=== PATIENT | female | born 1995 | race Caucasian/White ===

== ENCOUNTER 2018-04-23 00:06 | Emergency (ER) | payer OTHER ==
[~2018-04-23] VITALS: Ht 170.2 cm; Wt 63.5 kg
== END 2018-04-23 02:22 | disposition home or self-care (01) ==
LOC: ED 00:06
DX: S16.1XXA Strain of muscle, fascia and tendon at neck level, initial encounter (principal); S00.93XA Contusion of unspecified part of head, initial encounter; V29.9XXA Motorcycle rider (driver) (passenger) injured in unspecified traffic accident, initial encounter
CPT/HCPCS: 70450; 72125; 99284

== ENCOUNTER 2021-10-05 10:15 | Emergency (ER) | payer OTHER ==
[~2021-10-05] VITALS: Ht 170.2 cm; Wt 93.0 kg
[2021-10-05] MEDS ORDERED: SULFAMETHOXAZO1 EAC1 PO (10:46)
[2021-10-05] MEDS ORDERED: PYRIDIUM100 MG PO (10:47)
[2021-10-05] MEDS ORDERED: AMITRIPTYLINE H25 MG PO (12:37)
== END 2021-10-05 12:53 | disposition home or self-care (01) ==
LOC: ED 10:15
DX: N30.10 Interstitial cystitis (chronic) without hematuria (principal)
CPT/HCPCS: 76830; 76856; 81001; 84703; 99284-25

== ENCOUNTER 2021-11-20 20:11 | Emergency (ER) | payer OTHER ==
[~2021-11-20] VITALS: Ht 172.7 cm; Wt 97.0 kg
[~2021-11-20 20:11] MED LIST: AMITRIPTYLINE H25 MG PO; PYRIDIUM100 MG PO; SULFAMETHOXAZO1 EAC1 PO
[2021-11-20] MEDS ORDERED: MUPIROCIN22 GM TOP (20:31)
[2021-11-20] MEDS ORDERED: BACTRIM DS TAB1 EACH PO (20:31)
== END 2021-11-20 20:44 | disposition home or self-care (01) ==
LOC: ED 20:11
DX: T63.301A Toxic effect of unspecified spider venom, accidental (unintentional), initial encounter (principal); Z79.899 Other long term (current) drug therapy
CPT/HCPCS: 99282